=== PATIENT | female | born 1960 | race Caucasian/White ===

== ENCOUNTER 2016-11-04 21:32 | Inpatient (IN) | payer OTHER ==
[~2016-11-04] VITALS: Ht 160 cm; Wt 89.4 kg
[~2016-11-04 21:32] MED LIST: CYCLOBENZAPRINE10 MG PO; HYDROCHLOROTH12.5 MG PO; SILVADENE20 GM TOP; TRAMADOL HCL50 MG PO
[2016-11-04] MEDS ORDERED: CEPHALEXIN500 MG PO (21:47)
[2016-11-04] MEDS ORDERED: OXYCODONE HCL5 MG PO (21:47)
--- NOTE | 2016-11-05 02:05 | NUR ---
11/05/16 0205 Melida Xavier 0156-PATIENT ARRIVED TO PACU ON 8L MASK O2 SAT 100% DRESSING TO RIGHT AND LEFT BREAST CDI GAUZE AND JESSICA WRAP. MAGGY DRAIN PLACED TO RIGHT BREAST IN OR BY MD. PATIENT NONAROUSABLE. 0204-WEANED TO 6L MASK. PATIENT AROUSES TO VERBAL STIMULI, DROWSY FALLS BACK ASLEEP.
--- NOTE | 2016-11-05 02:45 | NUR ---
PT ARRIVES TO FLOOR VIA STRETCHER, ABLE TO SCOOT HERSELF ONTO BED; TOLERATED WELL. BEDSIDE REPORT RECEIVED FROM SURGERY NURSE. DRESSING TO CHEST IS C/D/I. PT STATES PAIN IS TOLERABLE. PT UP TO USE THE BATHROOM WITH STANDBY ASSIST AND BACK TO BED. PT'S FAMILY ARRIVED AT BEDSIDE. PT GIVEN WATER. DENIES OTHER NEEDS.
--- NOTE | 2016-11-05 03:15 | NUR ---
PT REPORTS THAT PAIN IS 6/10, REQUESTS PRN PAIN MEDICATION. PT ABLE TO EAT 2 PCKS OF CRACKERS, PO PAIN MEDICATION ADMINISTERED. PT'S FAMILY REMAINS AT BEDSIDE. PT DENIES FURTHER NEEDS. CALL LIGHT EDUCATION REINFORCED, PT STATES UNDERSTANDING.
--- NOTE | 2016-11-05 05:20 | NUR ---
PT RESTING WITH EYES CLOSED, WAKES EASILY. RATES PAIN 5/10, STATES THAT "IT IS TOLERABLE". DENIES NEED FOR PAIN MEDICATION. PT LOOKING ON HER CELL PHONE, DENIES NEEDS AT THIS TIME. CALL LIGHT INSTRUCTION REINFORCED. PT STATES UNDERSTANDING. CALL LIGHT WITHIN REACH.
--- NOTE | 2016-11-05 05:21 | NUR ---
PT ARRIVED ON FLOOR AT 0245 POST OP. 2 TABS PRN PERCOCET GIVEN 0315. NO FURTHER PRNS GIVEN. R BREAST OPEN WITH MOIST GAUZE PACKING, KERLEX, AND JESSICA PER SURGERY NURSE. DRESSING C/D/I. MAGGY DRAIN X 2. LR @125.
--- NOTE | 2016-11-05 06:22 | NUR ---
PT RESTING IN BED WITH EYES CLOSED, WAKES EASILY. PT UP TO USE THE BATHROOM WITH SBA. TOLERATED WELL, SPLINTED WITH DRAW SHEET. PT RATES PAIN 7/10 AFTER BACK TO BED. PLAN TO CONTACT MD REGARDING LOW BP AND PAIN MEDICATION. PT STATES UNDERSTANDING RE PLAN. CALL LIGHT WITHIN REACH.
--- NOTE | 2016-11-05 06:29 | NUR ---
MD NOTIFIED REGARDING RECENT POST OP VS. MD VERBAL OK TO GIVE MS IV.
--- NOTE | 2016-11-05 07:43 | NUR ---
Patient admitted 11/04/16 in the [facility] with cellulitis of breast. First dose of vancomycin given at 2300. On admit, patient's SCr = 1.65. Reviewing past labs, (Apr 2015) baseline SCr = 0.95. Adjustment made to change dose to 1500mg q 24 hrs, as SCr expected to return to baseline. Begin new dosing early, at 1200 on 11/05/16. Will order vanco trough for 11/07/16 at 1130. Trough goal = 10-15
--- NOTE | 2016-11-05 07:45 | NUR ---
PT AWAKE AND STATES SHE FEELS PRETTY GOOD. HOPES TO GO HOME TODAY.
--- NOTE | 2016-11-05 08:18 | NUR ---
PT IS SITTING UP IN BED EATING BREAKFAST, WILL ASK @1000 ABOUT SHOWER
--- NOTE | 2016-11-05 09:32 | NUR ---
PT UP TO RESTROOM STANDBY ASSIST. ADMINISTERED PRN PERCO FOR PAIN 10/07
--- NOTE | 2016-11-05 10:03 | NUR ---
PT IS RESTING IN BED SAFELY WITH CALL LIGHT IN REACH. PT WOULD LIKE TO SHOWER BUT IS UNSURE IF SHE CAN DUE TO SURGERY, WILL CHECK WITH NURSE,
--- NOTE | 2016-11-05 10:22 | NUR ---
CALLED DR MONTANEZ REGARDING PT SEEPING THROUGH DRESSING. STATES SHE WILL BE HERE IN 1/2 HOUR TO CHANGE AND TO ADMINISTER IV MORPHINE NOW.
--- NOTE | 2016-11-05 12:06 | NUR ---
ASSISTED DR MONTANEZ IN DRESSING CHANGE. WILL BE BACK TOMORROW MORNING FOR ANOTHER CHANGE WITH RN. PLATE GRAINER APPRENTICE WILL DO ADDITIONAL DRESSING CHANGE FOR BID CHANGES. PT TOLERATED WELL AND WAS PREMEDICATED WITH IV MORPHINE. PARTNER IN ROOM AND WATCHED SO THAT SHE CAN DO IT AT HOME EVENTUALLY.
--- NOTE | 2016-11-05 13:55 | NUR ---
PT AND FRIEND ASLEEP. WILL WAIT TO GIVE HEPARIN SHOT FOR A LITTLE WHILE.
--- NOTE | 2016-11-05 16:13 | NUR ---
Medications reconciled by pharmacist with pharmacy records and patient interview
--- NOTE | 2016-11-05 16:42 | EKG ---
[facility] [address] [facility] [place] [address] Signed Normal sinus rhythm Normal ECG No previous ECGs available Confirmed by SHELDON GRAHAM MD ([id number]) on 11/05/2016 4:42:34 PM Electronically Signed By: SHELDON GRAHAM MD 11/05/16 1642 PATIENT NAME: CHUY COTO Electrocardiogram DATE OF : 58 PHYSICIAN: SHELDON GRAHAM MD REPORT #: [id number] REPORT IS CONFIDENTIAL AND NOT TO BE RELEASED WITHOUT AUTHORIZATION
--- NOTE | 2016-11-05 17:39 | NUR ---
PT RESTED TODAY. DRESSING CHANGED BY DR IN MORNING. TO BE CHANGED BID. SUPPLIES IN ROOM. PERCO AND IV MORPH FOR PAIN. PREMEDICATE FOR DRESS. CHANGE. TOLERATING REG. DIET. BP REMAINS LOW, DR AWARE. LR 125. VANCO STARTED.
--- NOTE | 2016-11-05 18:18 | NUR ---
PT IS SITTING UP IN BED WITH CALL LIGHT IN REACH. PT ASKED FOR MORE ICE WATER.
--- NOTE | 2016-11-05 19:00 | NUR ---
BEDSIDE REPORT RECEIVED FROM OFF GOING NURSE. PT SITTING UP IN BED WATCHING TV. DRESSING TO CHEST C/D/I. PT STATES PAIN IS AT A TOLERABLE LEVEL. DENIES NEEDS AT THIS TIME. CALL LIGHT WITHIN REACH.
--- NOTE | 2016-11-05 21:15 | NUR ---
PT ASSESSMENT COMPLETE. PT RATES PAIN 5/10, STATES THAT THIS IS TOLERABLE. PT WOULD LIKE TO WAIT FOR DRESSING CHANGE FOR PRN MS. DRESSING C/D/I. CRACKLES NOTED TO BLL, PT DEMONSTRATES APPROPRIATE IS USE. PT DENIES OTHER NEEDS AT THIS TIME. CALL LIGHT WITHIN REACH.
--- NOTE | 2016-11-05 22:00 | NUR ---
PT DRESSING CHANGE COMPLETED PER MD ORDER. PT PREMEDICATED WITH MORPHINE. PT TOLERATED WELL. PAIN INCREASED TO 7/10 PER PT REPORT. PRN PERCOCET GIVEN. PT DENIES OTHER NEEDS AT THIS TIME. CALL LIGHT WITHIN REACH.
--- NOTE | 2016-11-06 00:17 | NUR ---
PT RESTING IN BED WITH EYES CLOSED, RESPIRATIONS ARE EVEN AND UNLABORED. PT APPEARS TO BE SLEEPING. CALL LIGHT WITHIN REACH.
--- NOTE | 2016-11-06 03:05 | NUR ---
PT ASSESSMENT COMPLETED. PT RESTING WITH EYES CLOSED, RESPIRATIONS EVEN AND UNLABORED. PT WAKES EASILY. STATES THAT PAIN IS TOLERABLE AT 4/10. DRESSING REMAINS C/D/I. PT DENIES OTHER NEEDS. CALL LIGHT WITHIN REACH.
--- NOTE | 2016-11-06 04:29 | NUR ---
DRESSING CHANGE THIS SHIFT. PT PREMEDICATED WITH MS, AND PRN PERCOCET GIVEN AFTER. PT SLEPT MOST OF SHIFT. IND IN ROOM. LR @ 125.
--- NOTE | 2016-11-06 04:46 | NUR ---
DRESSING CHANGE THIS SHIFT. PT PREMEDICATED WITH MS, AND PRN PERCOCET GIVEN AFTER. PT SLEPT MOST OF SHIFT. IND IN ROOM. LR @ 125.
--- NOTE | 2016-11-06 05:40 | NUR ---
PT SITTING UP IN BED, LOOKING AT CELL PHONE. PT REPORTS THAT PAIN IS DECREASED TO 4/10. DENIES FURTHER NEEDS. CALL LIGHT WITHIN REACH.
--- NOTE | 2016-11-06 07:42 | NUR ---
Patient sitting up in bed waiting for breakfast. Patient washed face and hands. Patient refused to sit in chair at this time. Fresh water given. No other needs at this time.
--- NOTE | 2016-11-06 08:50 | NUR ---
PT AWAKE IN BED, ALERT AND ORIENTED. DENIES PAIN OR OTHER CONCERNS AT THIS TIME. ATE MOST OF BREAKFAST, JOSY WELL. DRESSING ON CHEST CDI. IV INFUSING WNL. CALL LIGHT WITHIN REACH.
--- NOTE | 2016-11-06 09:48 | NUR ---
PATIENT SITTING UP IN BED WATCHING TV. ENCORAGED PATIENT TO USE I.S. COFFEE GIVEN. NO OTHER NEEDS AT THIS TIME.
--- NOTE | 2016-11-06 10:45 | NUR ---
DR. MONTANEZ DID LEFT AND RIGHT BREAST DRESSING CHANGE WITH THIS RN AND PT SIGNIFICANT OTHER PRESENT. PT JOSY WELL. PREMEDICATED WITH IV MORPHINE PRIOR TO PROCEDURE. PT SIGNIFICANT OTHER EDUCATED ON DRESSING CHANGE AND DOCTOR INFORMED HER THAT SHE COULD PERFORM DRESSING CHANGES FROM NOW ON. PT MEDICATED AFTER PROCEDURE WITH PRN PERCOCET. RATING PAIN /10. PT IN POSITION OF COMFORT. CALL LIGHT AND PERSONAL ITEMS WITHIN REACH.
--- NOTE | 2016-11-06 13:47 | NUR ---
PATIENT SITTING UP IN BED WATCHING TV. FRESH ICE WATER GIVEN. CLEAN GOWN ON PATIENT. NO OTHER NEEDS AT THIS TIME.
--- NOTE | 2016-11-06 14:23 | NUR ---
PT RESTING IN BED, ALERT AND ORIENTED. PAIN SEEMS TO BE PERSISTANT, BUT MANAGEABLE. WAS TO GO BACK TO WORK TODAY, WOULD MUCH RATHER BE THERE. SHE SEEMS TO BE COPING WITH SETBACK FROM POST-OP INFECTION. PT DECLINED PRAYER, WILL CONTINUE TO FOLLOW. SIGNIFICANT OTHER IN ASLEEP
--- NOTE | 2016-11-06 14:50 | NUR ---
PT MEDICATED WITH PRN PERCOCET FOR C/O 8 BREAST PAIN. PT SITTING UP IN BED WATCHING TV, PARTNER AT BEDSIDE. DENIES ANY OTHER CONCERNS. CALL LIGHT WITHIN REACH.
--- NOTE | 2016-11-06 17:02 | NUR ---
PT UP IN BED EATING DINNER, REPORTS THAT PERCOCET WORKED WELL FOR PAIN. PARTNER AT BEDSIDE. PT INDEPENDENT IN ROOM. DENIES NEEDS OR CONCERNS.
--- NOTE | 2016-11-06 19:20 | NUR ---
REPORT RECEIVED FROM OFFGOING NURSE WHO STATES THAT PT WISHES TO NOT HAVE BEDSIDE REPORT ANY LONGER.
--- NOTE | 2016-11-06 21:00 | NUR ---
PT ASSESSMENT COMPLETED. PT RATES PAIN 12/07. PRN PERCOCET GIVEN. DRESSING TO CHEST IS C/D/I. PT DENIES NEEDS AT THIS TIME, CALL LIGHT WITHIN REACH.
--- NOTE | 2016-11-06 21:55 | NUR ---
PT PREMEDICATED WITH MS FOR DRESSING CHANGE. PT'S SIGNIFICANT OTHER PRESENT AT BEDSIDE. DECLINES OFFER TO PERFORM DRESSING CHANGE WITH CONSUMER PRODUCT ADVISOR'S ASSISTANCE. DRESSING PERFORMED PER ORDER. PT TOLERATED WELL. STATES THAT PAIN IS 4-5/10, AND IS TOLERABLE. DENIES NEEDS AT THIS TIME. CALL LIGHT WITHIN REACH.
--- NOTE | 2016-11-07 02:33 | NUR ---
PT RESTING WITH EYES CLOSED, RESPIRATIONS ARE EVEN AND UNLABORED. APPEARS TO BE SLEEPING.
--- NOTE | 2016-11-07 04:43 | NUR ---
BID DRESSING CHANGE, PREMEDICATE. SIGNIFICANT OTHER TO PERFORM DRESSING CHANGE WITH SUPERVISION. PRN MS AND EPRCOCET GIVEN X 1 THIS SHIFT. PT SLEEPING MOST OF SHIFT. INDEPENDENT IN ROOM. LR @ 75, SALINE LOCK 11/07 IF HEEL SPLITTER IS WNL PER MD ORDER.
--- NOTE | 2016-11-07 07:30 | NUR ---
bedside report from charge entry clerk and Alicia JEAN BAPTISTE primary. Pt denies needs at this time. Labs in, low H/H, Dr. Thomas called and Dr. Moffett will see pt. today.
--- NOTE | 2016-11-07 09:55 | NUR ---
IV PRESENT ON ASSESSMENT ON LEFT HAND, BLUE HUB WNL. IV FUSING WELL VISITING WITH S/O - FEELING WELL - PAIN MEDS GIVEN.
--- NOTE | 2016-11-07 12:30 | NUR ---
pt up to shower per dr boyce order - hibicleans used. back to bed, wet to dry dressing placed to bi lateral breasts and photos taken after consent to sent to located within [facility] Dr. boyce called them and they are expecting the photos to consult. pt. agrees with plan of care - email for primary provided to chart to send as well. superviser and battery charger both aware. pt toll. drsg change well - painful - pre medicated with po and iv meds. foul odor noted, and purlent drainage bilaterally. eduard drain in right breast at distal area. H
--- NOTE | 2016-11-07 14:22 | NUR ---
PT SEEMS MUCH MORE AWARE OF HER SURROUNDINGS AND VERY ALERT. RN WITH PT. WILL CONTINUE TO FOLLOW
--- NOTE | 2016-11-07 17:38 | NUR ---
DR BANERJEE ASSUMED CARE TODAY. PHOTOS OF BI LATERAL WOUND AND R DRAIN SENT TO [facility] - CHARGE JEANETTE JEAN BAPTISTE. PT SHOWERED TODAY WITH SIMBA - SAW WOUNDS. DR. BANERJEE TO UDPATE ON F/U WITH [facility] CONSULT FOR FURTHER WOUND CARE PLAN. STARTED PO ABX AND CONTINUED VANCO IV FOR INFECTION. MS INCREASED FOR PRE MEDICATE AND PRN WOUND CARE. PERCOCET PRN X2 TODAY. APPT. IN [place] FOR 11/08 WITH SURGEON WAS CANCELLED BY PT.
--- NOTE | 2016-11-07 18:37 | NUR ---
call to Smooth Clark RN again at [facility] to confirm the pictures of pt wounds were recived. Confirmed. at [facility] will look 11/08/16. They confirmed Dr. Moffett phone number to call for consult -tomorrow. pictures printed and to chart. this rn did NOT email to primary drAidan or pt - pt pt did provided email to chart if it is possible to send to plastic surgeon in [place].
--- NOTE | 2016-11-07 21:23 | NUR ---
PT ASSESSMENT COMPLETE. PT RATES PAIN 5-6/10, 2 TABS PERCOCET GIVEN. PT DENIES ANY N/V, SOB. HS MEDS GIVEN. UPDATED ON PLAN OF CARE AND THAT DRESSING CHANGE WILL BE DONE SOON, PT AGREED THAT SHE WOULD LIKE IV MORPHINE PRIOR TO DRESSING CHANGE. IV ABX STARTED, IV SITE PATENT AND INTACT. CALL LIGHT WITHIN REACH. PT DENIES ANY FURTHER NEEDS AT THIS TIME.
--- NOTE | 2016-11-07 22:54 | NUR ---
DRESSING CHANGE DONE TO BILATERAL BREASTS, PT TOLERATED WELL. WET-TO-DRY WITH NS AND ABD PADS, BACTROBAN APPLIED TO INCISIONS. JESSICA WRAP APPLIED AROUND CHEST. PREMEDICATED WITH 4 MG IV MORPHINE.
--- NOTE | 2016-11-08 01:00 | NUR ---
PT SLEEPING, RR EVEN AND UNLABORED. PT APPEARS COMFORTABLE AT THIS TIME. PT SALINE LOCKED. CALL LIGHT WITHIN REACH.
--- NOTE | 2016-11-08 05:46 | NUR ---
PT HAD AN UNEVENTFUL NIGHT. SLEPT MOST OF NIGHT. PT RECEIVED PERCOCET FOR PAIN. DRESSING CHANGE DONE, PREMEDICATED WITH 4 MG IV MORPHINE, PT TOLERATED WELL. PT AMBULATES INDEPENDENTLY. IV SALINE LOCKED. WAITING ON CULTURE SENSITIVITY FOR ABX.
--- NOTE | 2016-11-08 07:15 | NUR ---
Patient sitting up on couch. clean linens. Patient would like to shower at home if d/c today. Clean wash cloth and gown out for patient to use. Oral care done.
--- NOTE | 2016-11-08 10:34 | NUR ---
PATIENT IS AWAKE RESTING IN BED VISITING WITH FAMILY. I GOT HER MORE ICE WATER. PATIENT STATES SHE DOES NOT NEED ANYTHING AT THIS TIME. HER FAMILY IS ALSO DOING OKAY. CALL LIGHT IN REACH.
--- NOTE | 2016-11-08 13:04 | NUR ---
upt to shower after pre medicated. dressing removed see complex wound assessment
[2016-11-08] MEDS ORDERED: BACTRIM DS TAB1 EACH PO (14:05)
[2016-11-08] MEDS ORDERED: LINEZOLID600 MG PO (14:06)
[2016-11-08] MEDS ORDERED: PERCOCET 5-3251 EACH PO (14:06)
[2016-11-08] MEDS ORDERED: NORMAL SALINE FL2 ML INJ (14:07)
--- NOTE | 2016-11-08 14:08 | NUR ---
shower complete. tollerated well. Dr. Moffett here to see wounds before re dressed. Photos taken and placed in chart. right breast wound packed with wet gauze and covered with abd. bactroban to wound edges. left blackened nipple covered with wet gauze and covered, distal wound packed wet to dry, and covered as ordered. plan to dc home today to follow up at [facility] surgeon tomorrow am. appt. lucy and Dr. Moffett has arrainged f/u per phone call with the office in [facility]. Iv removed wnl. pain meds given po
--- NOTE | 2016-11-08 14:23 | NUR ---
I WAS CONTACTED BY KRISTINE LOUISE REGARDING PT. DR BANERJEE IS REFERRING PT TO HER SURGEON IN [place]. PT EXPRESSED FINANCIAL DIFFICULTY, WAS SEEKING AID. I GAVE ASPEN SEVERAL POSSIBILITIES FOR HELP. PT OR HER PARTNER WILL NEED TO MAKE CONTACTS THEMSELVES. WILL ASSIST IF POSSIBLE
[2016-11-08] MEDS ORDERED: MUPIROCIN22 GM TOP (14:35)
--- NOTE | 2016-11-08 16:14 | NUR ---
FAXED CHART NOTES TO [facility] AND TALKED WITH EMELI FROM [facility]. FAX INCLUDED FACESHEET, ORDER, ER NOTES, EKG, H AND P, PROG NOTES, HAND WRITTEN NOTES AND ORDERS FROM DR BANERJEE, MEDICATIONS, PATHOLOGY AND LABS TALKED TO PT IF THEY HAVE ANY CONCERNS THEY ARE WELCOME TO CALL THE OFFICE.
--- NOTE | 2016-11-12 09:12 | DS ---
[facility] [address] [place], [place] [address] Signed FINAL DIAGNOSIS: Bilateral breast postoperative wound infections. PROCEDURE: Incision and drainage, bilateral breasts. HISTORY OF PRESENT ILLNESS: Dayanna is a 56-year-old female, who admitted down in [place] to have bilateral breast reduction with Dr. Shola Belcher with the [facility]. This was about 2 weeks ago. She is now home 3 hours away in [place], [place]. She apparently was having some drainage from the wounds and ended up in the emergency r o om. There was some additional nylon suture placed in the inframammary crease laterally on the left breast by the ER physician. There had been consultation with the ER doctor and the plastic surgeon. Unfortunately, her condition worsened and both nipple-ar eolar complexes had become black and necrotic. She then developed secondary wound infections. Our locum surgeon, Dr. Debbie Thomas had been consulted to admit Dayanna for further care. HOSPITAL COURSE: Dayanna was admitted as above and taken to the operatin g room by Dr. Thomas for debridement of both breasts. Of course, the wounds were left open and packed with saline soaked gauze. She has been on vancomycin and progressing nicely with decreasing erythema in the surrounding tissues. Dr. Thomas then checked o ut to me and I took over as a general surgeon on-call. Her wound culture came back initially with Serratia marcescens, which was sensitive to the Bactrim, which we added yesterday, and then this morning, it also grew out Enterococcus faecalis. This had se v eral sensitivities including linezolid. Today, we can see that her erythema continues to improve markedly. She had some dry adipose tissue in the center of that right breast from when I first saw her, but otherwise the tissue around is all quite viable. S h e still has the black nipple-areolar complex on the left breast. She has been able to shower soap and water directly into the wounds and then cover the areas with Bactroban ointment and then use the saline-soaked gauze to pack the wounds and then wrap michelle u nd her chest with an abdominal binder. In the meantime, I personally spoke with Dr. Shola Belcher yesterday evening with respect to Dayanna and her current situation. He requested that she be seen as soon as possible. We are going to be discharging h e r today and I have spoken with his job setter honing, Liset and she will be making appointment either tomorrow morning at 11:30 or later in the afternoon [address] Belcher. I have been over this now with Dayanna and her partner yesterday and today at [facility]. For some reason, her partner is a little resistant with respect to money and paying for gas and so forth. However, Dayanna herself seems to think it would be fine. I am certainly available to them locally if they need additional help, otherwise we a re going to turn her over to Dr. Belcher. Electronically Signed By: JOSE BANERJEE MD 11/12/1612 PATIENT NAME: DAYANNA COTO DISCHARGE SUMMARY DATE OF : 58 PHYSICIAN: JOSE BANERJEE MD REPORT #: [id number] REPORT IS CONFIDENTIAL AND NOT TO BE RELEASED WITHOUT AUTHORIZATION [facility] [address] [place] [id number] Signed DISCHARGE PLANS AND MEDICATIONS: Dayanna would discharge home with Bactrim DS 2 tablets p.o. b.i.d. with 40 tablets, no refills. We will write for linezolid 600 mg p.o. b.i.d., 20 tablets with no refills. We also wro te for Percocet 5/325 one to two tablets p.o. q.4-6 hours p.r.n. pain, dispense 80 tablets with no refills. She is written for normal saline 1 L with 12 refills to be used for her wound care. She can purchase 4-inch gauze roll for the wound packing. She c a n purchase dry ABDs or simple peripad to cover the wounds. We also wrote for the Bactroban ointment to apply to her skin b.i.d., dispense 1 tube with 6 refills. She already has abdominal binder she can use to wrap her torso. We have asked her not to do an y heavy pushing or pulling or lifting obviously. We made arrangements for her followup with Dr. Shola Belcher tomorrow as stated above. Of course I am available locally if they need anything here, otherwise we are going to release her care to Dr. Jayesh orta. Dayanna and her friend have expressed understanding and agreed to above plan. MD RUIZ García/Noel /[id number] cc: MD Jose Almanzar MD Electronically Signed By: JOSE BANERJEE MD 11/12/16 0912 PATIENT NAME: DAYANNA COTO DISCHARGE SUMMARY DATE OF : 58 PHYSICIAN: JOSE BANERJEE MD REPORT #: [id number] REPORT IS CONFIDENTIAL AND NOT TO BE RELEASED WITHOUT AUTHORIZATION
== END 2016-11-08 16:25 | disposition home or self-care (01) | DRG 857 ==
LOC: ED 21:32 → MS 23:58
PROVIDERS: ADMIT Surgery
PROC: 0J9630Z Drainage of Chest Subcutaneous Tissue and Fascia with Drainage Device, Percutaneous Approach (ICD-10-PCS; 2016-11-05)
PROC: 0JB60ZZ Excision of Chest Subcutaneous Tissue and Fascia, Open Approach (ICD-10-PCS; principal; 2016-11-05 01:16)
DX: T81.4XXA Infection following a procedure, initial encounter (principal); T81.31XA Disruption of external operation (surgical) wound, not elsewhere classified, initial encounter; N61.0 Mastitis without abscess; I10 Essential (primary) hypertension; M54.9 Dorsalgia, unspecified; N61.1 Abscess of the breast and nipple
CPT/HCPCS: 00404; 36415; 80048; 80053; 80202; 83605; 85025; 87040; 87070; 87075; 87076; 87077; 87185; 87186; 87205; 93005; 93010; 96374; 96375; 99285; J1644; J2270; J2405; J2704; J3010; J3370; J7030; J7120

== ENCOUNTER 2023-10-17 07:00 | Day surgery (SDC) | payer OTHER ==
[2023-10-08 10:19] VITALS: BP 145/76
[~2023-10-17] VITALS: Ht 160 cm; Wt 90.9 kg
--- NOTE | ~2023-10-17 | OR ---
[facility] [address], [place] [address] Draft DATE OF OPERATION: 10/17/2023 SURGEON: Stone Augustin DPM PREOPERATIVE DIAGNOSIS: Posterior calcaneal spur, right foot. POSTOPERATIVE DIAGNOSIS: Posterior calcaneal spur, right foot. G[employer]ING [employer]OR SUPERVISOR SURGEON: Chris Howell DPM ANESTHESIA: IV general with local block, right foot. ELECTRONEURODIAGNOSTIC TECHNOLOGIST: Junie Rasmussen. SPECIMEN TO PATHOLOGY: None. DESCRIPTION OF PROCEDURE: The patient was brought to the operating room and placed on the table in the prone position. Anesthesia Department administered IV sedation, after which a local block was given to the right foot using a total of 10 mL, 1:1 mixture, 2% lidocaine plain and 0.5% ropivacaine plain. The right leg and foot was then prepped and draped in the usual sterile manner and an Esmarch was used for hemostasis. Attention was initially directed to the posterior aspect of the right heel, where a linear longitudinal incision was made centered over the posterior heel and the Achilles tendon. The incision was approximately 6 cm in length over the distal Achilles tendon and posterior heel. The incision was initially full-thickness through the dermis, then deepened with careful dissection and cautery as necessary for hemostasis. Once at the level of deep fascia, soft tissues were reflected medially and laterally to expose the distal Achilles tendon and posterior heel. A linear longitudinal incision then made deep through the tendon extending distal to the Achilles tendon attachment and heel spur site at the posterior heel. The tendon then detached for the majority of the tendon, leaving the medial and lateral margins attached with the distal aspect of the tendon, reflected medially and laterally to fully expose the bone spur at the posterior heel. PATIENT NAME: CHUY COTO OPERATIVE REPORT DATE OF : 58 REPORT #: [id number] PHYSICIAN: STONE AUGUSTIN DPM PCP: KENYON HARRIS PAC REPORT IS CONFIDENTIAL AND NOT TO BE RELEASED WITHOUT AUTHORIZATION [facility] [address], [place] [address] Draft At this time, power instrumentation and hand instrumentation were used to remove the posterior heel spur. This site was then smoothed with use of a hand rasp. Inspection was made for any remaining rough areas or bone spur areas and any remaining bone spur or hard tissue within the tendon. The surgical site was then irrigated with copious amounts of normal saline. At this time, the tendon was sutured with #2 nonabsorbable suture in an alternating pattern from medial to lateral across the longitudinal incision through the distal aspect of the Achilles, leaving a tail on the each side distally. The tails of the tendon were then used to connect to a soft tissue anchor, which was placed within the posterior calcaneus just distal to the Achilles tendon. Prior to attachment of the suture into the soft tissue anchor, a new shield amniotic tissue graft was utilized. This was a 4 x 6 cm piece, half of which was placed deep to the Achilles tendon and the other half over the top of the Achilles tendon. Soft tissues then closed over the graft material and secured using 4-0 Vicryl and the skin closed using skin gideon. Estimated blood loss was less than 5 mL. A thigh tourniquet was used for the procedure and this was placed prior to local block or prep. Intraoperative complications, none. The patient tolerated the procedure and the anesthesia well and left the operating room with vital signs stable and vascular status intact to the right foot as evidenced by hyperemia with removal of the thigh tourniquet. Dressings applied consisting of Adaptic, Betadine-soaked gauze, dry gauze, Flexicon, and Coban for mild compression. Stone Augustin DPM DFB/MODL /[id number] Copies: PATIENT NAME: CHUY COTO OPERATIVE REPORT DATE OF : 58 REPORT #: [id number] PHYSICIAN: STONE AUGUSTIN DPM PCP: KENYON HARRIS PAC REPORT IS CONFIDENTIAL AND NOT TO BE RELEASED WITHOUT AUTHORIZATION [address] [address] Draft ~ PATIENT NAME: CHUY COTO OPERATIVE REPORT DATE OF : 58 REPORT #: [id number] PHYSICIAN: STONE AUGUSTIN DPM PCP: KENYON HARRIS PAC REPORT IS CONFIDENTIAL AND NOT TO BE RELEASED WITHOUT AUTHORIZATION
[~2023-10-17 07:00] MED LIST changes: +BACTRIM DS TAB1 EACH PO; +CEFAZOLIN SODIUM 1 GM/10 ML SYR IV SCH; +CEPHALEXIN500 MG PO; +IBLOOD GLUCOSE TEST STRIP 1 EA TEST VI PRN; +LACTATED RINGER'S 1,000 ML IV SCH; +LIDOCAINE HCL 1% 5 ML SDV INJ ONE; +LINEZOLID600 MG PO; +MUPIROCIN22 GM TOP; +NORMAL SALINE FL2 ML INJ; +OXYCODONE HCL5 MG PO; +PERCOCET 5-3251 EACH PO
[2023-10-17 07:11] VITALS: BP 136/61
[2023-10-17] MEDS ORDERED: LISINOPRIL-HCT1 EACH PO (07:14)
[2023-10-17 07:52] VITALS: BP 132/67
[2023-10-17] MEDS ORDERED: propofoL 200 MG/20 ML VIAL ONE ×2 (09:14→10:14)
[2023-10-17] MEDS ORDERED: LIDOCAINE HCL 2% 5 ML SDV ONE (09:14)
[2023-10-17] MEDS ORDERED: KETAMINE in NS 50 MG/5 ML SYR ONE (09:14)
[2023-10-17] MEDS ORDERED: LIDOCAINE HCL 2% 20 ML MDV ONE (09:15)
[2023-10-17] MEDS ORDERED: Ropivacaine HCl 0.5% 30 ML VIAL ONE (09:15)
[2023-10-17] MEDS ORDERED: DEXAMETHASONE SOD PHOS 4 MG/ML VIAL ONE (09:16)
[2023-10-17] MEDS ORDERED: dexmedeTOMIDine HCl 200 MCG/2 ML VIAL ONE (10:14)
--- NOTE | 2023-10-17 11:21 | NUR ---
10/17/23 [address] 1119 PATIENT HAS BEEN SITTING UP IN BED WITH NO COMPLAINTS OF PAIN. PATIENT HAS BEEN GIVEN AN ICEPACK. PATIENT DID COMPLAIN OF THIRST AND WAS GIVEN WATER. HAS HAD NO NAUSEA. PATIENT APPEARS COMFORTABLE AND O2 SAT HAS REMAINED ABOVE 95% WHILE ON ROOM AIR.
[2023-10-17 11:32] VITALS: BP 117/67
--- NOTE | 2023-10-17 17:41 | EKG ---
[facility] [address] [facility] [place] [address] Signed Normal sinus rhythm Normal ECG When compared with ECG of 05-NOV-2016 00:28, No significant change was found Confirmed by DOUGLAS MICHELLE MD ([id number]) on 10/17/2023 5:41:21 PM Electronically Signed By: DOUGLAS MICHELLE 10/17/23 1741 PATIENT NAME: CHUY COTO Electrocardiogram DATE OF : 58 PHYSICIAN: DOUGLAS MICHELLE REPORT #: [id number] REPORT IS CONFIDENTIAL AND NOT TO BE RELEASED WITHOUT AUTHORIZATION
== END 2023-10-17 11:42 | disposition home or self-care (01) ==
LOC: DS 07:00 → OPS 07:00 → DS 10:45 → OPS 11:42
PROVIDERS: ATTEND Podiatrist Foot Surgery
PROC: 0QBL0ZZ Excision of Right Tarsal, Open Approach (ICD-10-PCS; principal; 2023-10-17 10:05)
DX: M77.31 Calcaneal spur, right foot (principal)
CPT/HCPCS: 73630; 93005; 93010; J0690; J1100; J2001; J2704; J2795; J3490; J7121

== ENCOUNTER 2025-03-08 16:13 | Emergency (ER) | payer OTHER ==
[~2025-03-08] VITALS: Ht 160 cm; Wt 95.6 kg
[~2025-03-08 16:13] MED LIST changes: -CEFAZOLIN SODIUM 1 GM/10 ML SYR IV SCH; -IBLOOD GLUCOSE TEST STRIP 1 EA TEST VI PRN; -LACTATED RINGER'S 1,000 ML IV SCH; -LIDOCAINE HCL 1% 5 ML SDV INJ ONE; +LISINOPRIL-HCT1 EACH PO
[2025-03-08 17:54] VITALS: BP 169/82
--- NOTE | 2025-03-09 09:55 | EKG ---
[facility] [address] [place] [facility] [place] [address] Signed Normal sinus rhythm Nonspecific T wave abnormality Abnormal ECG When compared with ECG of 17-OCT-2023 07:43, Non-specific change in ST segment in Inferior leads Confirmed by Bacilio Shirley DO ([id number]) on 03/09/2025 9:55:27 AM Electronically Signed By: BACILIO SHIRLEY DO 03/09/25 0955 PATIENT NAME: CHUY COTO Electrocardiogram DATE OF : 58 PHYSICIAN: BACILIO SHIRLEY DO REPORT #: [id number] REPORT IS CONFIDENTIAL AND NOT TO BE RELEASED WITHOUT AUTHORIZATION
== END 2025-03-08 17:54 | disposition left against medical advice (07) ==
LOC: ED 16:13
DX: R00.8 Other abnormalities of heart beat (principal); Z53.21 Procedure and treatment not carried out due to patient leaving prior to being seen by health care provider; Z88.0 Allergy status to penicillin; Z79.899 Other long term (current) drug therapy
CPT/HCPCS: 93005; 93010